=== PATIENT | female | born 2000 | race Caucasian/White ===

== ENCOUNTER 2021-10-08 14:44 | Outpatient (REF) | payer OTHER, SELFPAY ==
[2021-10-08 15:10] LABS: MANUAL DIFF FLAG NO
[2021-10-08 15:33] LABS: Basophils Absolute Auto 0.1 X10*3/uL (0.0-0.2); Basophils Percent Auto 0.7 % (0-2); Eosinophils Absolute Auto 0.1 X10*3/uL (0.0-0.4); Eosinophils Percent Auto 0.6 % (0-4); Hematocrit 39.4 % (37.0-47.0); Hemoglobin 13.1 g/dl (12.0-16.0); Imm Gran Abs Auto 0.05 X10*3/uL (0.00-0.03); Imm Gran Pct Auto 0.5 % (0.0-0.4); Lymphocytes Absolute Auto 2.4 X10*3/uL (1.2-4.9); Lymphocytes Percent Auto 22.8 % (20-40); Mean Corpuscular HGB Conc 33.2 g/dl (31.0-35.0); Mean Corpuscular Hemoglobin 27.5 pg (27.0-33.0); Mean Corpuscular Volume 82.8 fL (80.0-98.0); Mean Platelet Volume 10.2 fL (9.4-12.3); Monocytes Absolute Auto 0.5 X10*3/uL (0.1-1.2); NRBC Pct Auto 0.2 /100WBC (0.0-0.2); Neutrophils Absolute Auto 7.5 x10*3/uL (2.0-8.3); Neutrophils Percent Auto 70.4 % (45-73); Platelet Count 507 X10*3/uL (160-400); Red Blood Count 4.76 X10*6/uL (4.20-5.50); Red Cell Distribution Width 13.4 % (11.0-16.0); White Blood Count 10.6 X10*3/uL (4.8-10.8)
[2021-10-08 15:59] LABS: Anion Gap 13 (12-20); Blood Urea Nitrogen 10 mg/dL (9-16); Calcium 9.7 mg/dL (8.4-10.2); Carbon Dioxide 25 mmol/L (22-29); Chloride 105 mmol/L (96-108); Cholesterol 157 mg/dL; Estimated Glomerular Filt Rate > 60; Glucose Fasting 85 mg/dL (60-99); HDL Cholesterol 49 mg/dL; LDL Cholesterol Calculated 97 mg/dl; Potassium 4.6 mmol/L (3.3-5.1); Sodium 138 mmol/L (135-145); Triglycerides 55 mg/dL
[2021-10-08 16:19] LABS: TSH reflex Free T4 0.92 uIU/mL (0.32-4.0)
== END 2021-10-08 14:45 | disposition home or self-care (01) ==
LOC: HO.LAB 14:44
PROVIDERS: PCP Internal Medicine; Visit Provider Nurse Practitioner Family
DX: Z00.00 Encounter for general adult medical examination without abnormal findings (principal); Z13.220 Encounter for screening for lipoid disorders; Z13.29 Encounter for screening for other suspected endocrine disorder; I10 Essential (primary) hypertension; E78.00 Pure hypercholesterolemia, unspecified
CPT/HCPCS: 36415; 80048; 80061; 84443; 85025

== ENCOUNTER 2023-01-19 09:20 | Outpatient (REF) | payer OTHER, SELFPAY ==
[2023-01-20 00:48] LABS: CT PCR NOT DETECTED (Not Detect.); NG PCR NOT DETECTED (Not Detect.)
[2023-01-20 10:59] LABS: BV Int Neg Control Negative (Negative); BV Int Pos Control Positive (Positive)
== END 2023-01-19 09:21 | disposition home or self-care (01) ==
LOC: HO.LNP 09:20
PROVIDERS: PCP Internal Medicine; Visit Provider Advanced Practice Midwife
DX: Z01.419 Encounter for gynecological examination (general) (routine) without abnormal findings (principal); Z20.2 Contact with and (suspected) exposure to infections with a predominantly sexual mode of transmission
CPT/HCPCS: 0353U; 87480; 87510; 87660; 88142

== ENCOUNTER 2023-10-25 09:53 | Outpatient (AMB) | payer OTHER, SELFPAY ==
--- NOTE | 2023-10-25 09:57 | A.OFFPC_ITS ---
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 Accompanied by: Self / Same As Patient Allergies ibuprofen Allergy (Unknown, Verified 10/25/23 10:19) lips swollen Medication List - Last Reconciled 10/25/23 by Regine Alamo MD No Known Home Meds Tobacco use date assessed: 10/25/23 Dental Screening Dental Screen Date: 10/25/23 Did you have a dental visit in the last 12 months?: No Did you have a dental problem in the last 6 months where you did not have access to dental care?: No Was dental information given to patient?: Patient has dentist HPI HPI Comments History of Present Illness Details This is a 23-year-old female that comes for her physical exam. Last Pap smear was 2022. No chest pain or shortness of breath. Has elevated platelets before and CBC will be repeated. She complains of urge urinary incontinence and I recommend to do time bathroom visits. [facility] Surgical History No pertinent past surgical history Family History Mother No problems noted. Father Substance use disorder Social History Housing: Apartment Alcohol intake: current Alcohol intake frequency: a few times a week Alcohol type: wine and hard liquor Patient Tobacco Use Status: Never used Tobacco e-Cigarette/Vaping Use: Never Used Second Hand Smoke Exposure: No service: No Current occupational status: employed Current occupational exposures/hazards: No Cognitive needs: No Hearing needs: No Vision needs: Yes Female Reproductive History Menstrual Age of Menarche: 7 Questionnaire PHQ-9 Over the last 2 weeks, how often have you been bothered by any of the following problems? 1. Little interest or pleasure in doing things: not at all 2. Feeling down, depressed, or hopeless: not at all 3. Trouble falling or staying asleep, or sleeping too much: not at all 4. Feeling tired or having little energy: not at all 5. Poor appetite or overeating: not at all 6. Feeling bad about yourself - or that you are a failure or have let yourself or your family down: not at all 7. Trouble concentrating on things, such as reading the newspaper or watching television: not at all 8. Moving or speaking so slowly that other people could have noticed. Or the opposite - being so fidgety or restless that you have been moving around a lot more than usual: not at all 9. Thoughts that you would be better off or of hurting yourself in some way: not at all Total score: 0 Depression Screening Interpretation: Negative Depression Screening Done: Yes 11214 - PHQ-9 Billing: Yes Source: Developed by Drs. Saleem Judd, Priya Josue, Yannick Chin and colleagues, with an educational danica from [employer]. Thrive Questionnaire Date Thrive assessed: 10/13/22 I am a: Patient What is your living situation today?: I have a steady place to live Within the past 12 months, did the food you bought not last and you didn't have the money to get more?: Never true Within the past 12 months, did you worry whether your food would run out before you got money to buy more?: Never true Do you have trouble paying for medicines?: No Do you have trouble getting transportation to medical appointments?: No Do you have trouble paying your heating and electricity bill?: No Do you have trouble taking care of your child, family member or friend?: No Do you have trouble with day-to-day activities such as bathing, preparing meals, shopping, managing finances, etc.?: No Are you currently unemployed and looking for a job?: No Are you interested in more education?: No Please select the resources that you would like help with: None Currently or been in a relationship where the following occur: no concerns reported THRIVE Score: 0 AUDIT C Alcohol Use Questionnaire (AUDIT-C) 1. How often do you have a drink containing alcohol?: 2-3 times a week 2. How many drinks containing alcohol do you have on a typical day when you are drinking?: 1 or 2 3. How often do you have six or more drinks on one occasion?: Never Total Score: 3 Score Reviewed/Action Taken: No SLIM-7 AMB Questionnaire SLIM-7 Date SLIM - 7 assessed: 10/25/23 Feeling nervous, anxious, or on edge: 0 = Not at all Not being able to stop or control worryin = Not at all Worrying too much about different things: 0 = Not at all Trouble relaxin = Not at all Being so restless that it is hard to sit still: 0 = Not at all Becoming easily annoyed or irritable: 0 = Not at all Feeling afraid as if something awful might happen: 0 = Not at all Total SLIM-7 score (0-4 normal; 5-9 mild; 10-14 moderate; 15-21 severe): 0 Source: Developed by Drs. Saleem Judd, Priya Josue, Yannick Chin and colleagues, with an educational danica from [employer]. SLIM-7 Assessment Billing SLIM-7 Assessment Tool: SLIM-7 Assessment 89749 Review of Systems Const All systems reviewed & are unremarkable except as noted in HPI and below Eyes Reports no additional complaints, Denies change in vision and Denies other visual disturbances Card Denies chest pain at rest, Denies chest pain with activity, Denies edema, Denies irregular heart rhythm, Denies claudication, Denies dyspnea, Denies dyspnea on exertion, Denies orthopnea, Denies paroxysmal nocturnal dyspnea and Denies slow heart rate Resp Denies cough, Denies dyspnea and Denies dyspnea on exertion GI Denies abdominal pain, Denies change in bowel habits, Denies excessive flatus, Denies nausea and Denies vomiting Reports urinary incontinence, Denies urinary hesitancy and Denies urinary urgency Musc Denies abnormal gait, Denies atrophy, Denies deformity and Denies limited range of motion Neuro Denies abnormal gait, Denies behavioral changes, Denies confusion and Denies lack of coordination Psych Denies behavioral changes and Denies confusion Physical exam (Primary Care) Vital Signs: Last Vital Signs BP 104/78 10/25/23 09:59 BMI result Body Mass Index 29.9 Tobacco/Smoking Status: Tobacco use Status Tobacco use date assessed 10/25/23 10/25/23 10:04 Patient Tobacco Use Status Never used Tobacco 10/25/23 10:04 e-Cigarette/Vaping Use Never Used 10/25/23 10:04 PHQ-9: PHQ-9 Score PHQ-9: Total score 0 10/25/23 10:04 Depression Screening Interpretation: Negative Thrive Assessment: Date of Thrive Assessment Date Thrive assessed 10/13/22 10/25/23 10:04 Currently or been in a relationship where the following occur: no concerns reported Const General: No confusion Orientation/consciousness: patient oriented x3 and No confusion HENMT Head: Yes normal to inspection, Yes normocephalic and Yes atraumatic Ears: external ears normal Eyes General: appearance normal, both eyes and all related structures Eyelids: Yes eyelids normal Conjunctivae: conjunctivae normal Neck Neck: Yes normal visual inspection and Yes supple Resp Effort & Inspection: normal respiratory effort Auscultation: clear to auscultation bilaterally Cardio Jugular venous distension: no JVD Rate: regular rate Rhythm: regular rhythm Heart sounds: S1 normal heart sound present and S2 normal heart sound present GI Inspection: Yes normal to inspection Palpation (GI): Soft to palpation and nontender Auscultation: normal bowel sounds Skin General skin exam: no rashes or lesions noted Neuro General: patient oriented x3, no focal motor deficits and No confusion Extrem General: Yes full ROM Psych Appearance: grossly normal Assessment and Plan Assessment & Plan (1) Physical exam: Comment: Due for eye exam. Last dental exam 2 months ago with [facility]. Not COVID vaccinated, will think about this and flu. She f/u's with [facility], Dr. Reyes. Copper IUD placed in 2019. Code(s): Z00.00 - Encounter for general adult medical examination without abnormal findings Plan: Repeat in a year. Orders: Orders Complete Blood Count Auto Diff Today R79.89 - Other specified abnormal findings of blood chemistry Coding Level of Care Code Est Pt Prev Care 18-39y(52341) Diagnoses Physical exam Z00.00 Additional Codes SLIM-7 Assessment Billing - SLIM-7 Assessment Tool: SLIM-7 Assessment 95740 ([id number]) Time Spent (min) 32
[2023-10-25 09:59] VITALS: BP 104/78; BMI 29.9
== END 2023-10-25 10:30 | disposition home or self-care (01) ==
PROVIDERS: Visit Provider Internal Medicine
DX: Z00.00 Encounter for general adult medical examination without abnormal findings (principal)
CPT/HCPCS: 99395

== ENCOUNTER 2023-10-25 10:37 | Outpatient (REF) | payer OTHER, SELFPAY ==
[2023-10-25 10:53] LABS: MANUAL DIFF FLAG NO
[2023-10-25 11:46] LABS: Basophils Absolute Auto 0.1 X10*3/uL (0.0-0.2); Basophils Percent Auto 1.4 % (0-2); Eosinophils Absolute Auto 0.1 X10*3/uL (0.0-0.4); Eosinophils Percent Auto 1.1 % (0-4); Hematocrit 41.5 % (37.0-47.0); Hemoglobin 14.1 g/dl (12.0-16.0); Imm Gran Abs Auto 0.05 X10*3/uL (0.00-0.03); Imm Gran Pct Auto 0.6 % (0.0-0.4); Lymphocytes Absolute Auto 2.9 X10*3/uL (1.2-4.9); Lymphocytes Percent Auto 35.8 % (20-40); Mean Corpuscular Hemoglobin 28.3 pg (27.0-33.0); Mean Corpuscular Volume 83.2 fL (80.0-98.0); Mean Platelet Volume 9.9 fL (9.4-12.3); Monocytes Absolute Auto 0.6 X10*3/uL (0.1-1.2); Monocytes Percent Auto 7.1 % (2-11); Neutrophils Absolute Auto 4.3 x10*3/uL (2.0-8.3); Platelet Count 405 X10*3/uL (160-400); Red Blood Count 4.99 X10*6/uL (4.20-5.50); Red Cell Distribution Width 13.9 % (11.0-16.0)
== END 2023-10-25 10:38 | disposition home or self-care (01) ==
LOC: HO.LAB 10:37
PROVIDERS: PCP Internal Medicine; Visit Provider Internal Medicine
DX: R79.89 Other specified abnormal findings of blood chemistry (principal)
CPT/HCPCS: 36415; 85025

== ENCOUNTER 2024-01-23 10:49 | Outpatient (AMB) | payer OTHER, SELFPAY ==
[2024-01-23 10:52] VITALS: BP 102/70; BMI 33.5
--- NOTE | 2024-01-23 10:52 | MHC.OFFVIS ---
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 She gets regular periods with it she does not exactly keep track to the day but they come regularly and monthly. She has no health concerns who worries about any STDs in particular. She can not feel the strings. On questioning she says she does have a kind of a a white to off-white discharge but no itching, burning, smell or anything. 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 She says she has never been really active person. She has not interested in childbearing soon [facility] Surgical History No pertinent past surgical history Family History Mother No problems noted. Father Substance use disorder Social History (Updated 01/23/24 @ 10:55 by BRIANNA Sandy) Housing: Apartment Alcohol intake: current Alcohol intake frequency: a few times a week Alcohol type: wine and hard liquor Patient Tobacco Use Status: Never used Tobacco e-Cigarette/Vaping Use: Never Used Second Hand Smoke Exposure: No Substance Use Type: Marijuana service: No Current occupational status: employed Current occupational exposures/hazards: No Cognitive needs: No Hearing needs: No Vision needs: Yes Female Reproductive History Menstrual Age of Menarche: 7 Duration of menses: 6-7 days control method: copper IUCD Total pregnancies: 0 Date of last pap smear: 01/20/23 (negative) History of abnormal pap smear: No Physical Exam Vital Signs: Last Vital Signs BP 102/70 01/23/24 10:52 BMI result Body Mass Index 33.5 Const General: healthy appearing, comfortable, no acute distress, well developed and alert Nutritional Appearance: average body habitus Orientation/consciousness: patient oriented x3 Limitations: no limitations HEENT Head: Yes normocephalic Neck Neck: Yes normal visual inspection Chest Chest palpation & inspection: normal inspection of the chest Breast/axilla inspection: normal inspection of the breasts and normal inspection of the axillae Breast/axilla palpation: normal palpation of the breasts and normal palpation of the axillae Resp Effort & Inspection: normal respiratory effort GI Inspection: Yes normal to inspection, No Abdominal wall edema and No distended Palpation (GI): Soft to palpation and nontender Other: External exam within normal limits vagina pink and moist there has a whitish discharge consistent with luteal phase. Cervix nulliparous pink smooth is was ParaGard IUD strings visible uterus small midposition nontender. Adnexa nontender good tone with Kegel. General: Yes bladder normal to palpation External Female Exam: normal external appearance and normal appearance of the urethra Speculum Exam - Vagina: normal appearance of the vagina, normal palpation and normal vaginal discharge Speculum Exam - Cervix: normal appearance of the cervix, normal palpation and nontender Bimanual exam- vagina & uterus: normal bimanual exam, normal palpation, uterine size normal, bladder normal to palpation, consistency normal, normal palpation, uterine mobility normal, uterine shape normal, No Cervical tenderness present, non-tender and no cervical motion tenderness Bimanual Exam- Adnexa, other: normal adnexae, no masses, normal and No adnexal tenderness Neuro General: patient oriented x3 Assessment & Plan Assessment & Plan (1) Uses intrauterine device as primary control method: Comment: Overall. she is content with the ParaGard IUD which she has had for 4 years Code(s): Z97.5 - Presence of (intrauterine) contraceptive device Category: Social Hx (2) Screen for sexually transmitted diseases: Code(s): Z11.3 - Encounter for screening for infections with a predominantly sexual mode of transmission Category: Medical (3) Cervical cancer screening: Comment: Negative Pap 2018; Pap repeated 01/20/2020= negative. Code(s): Z12.4 - Encounter for screening for malignant neoplasm of cervix Category: Medical (4) Well woman exam with routine gynecological exam: Code(s): Z01.419 - Encounter for gynecological examination (general) (routine) without abnormal findings Category: Medical Plan -----Discussed in this visit the following: healthy balanced diet, regular and consistent exercise, getting recommended health screens, doing the best she can for her particular health concerns, kegel exercises, pap smear screening and followup recommendations, mammography screening and SBE, normal changes in cycles in her life stage--- . Reviewed her content with the IUD reviewed that sometimes it is helpful thing to be more aware of ones. So that if she ever missed it she could track the dates exactly. Also being where this is a helpful to terms of future fertility and planning she has no plans for childbirth in times in the discussed trying to be in his good health as possible for embarking on that journey. Orders: Orders Bacterial Vaginosis Panel Today Z11.3 - Encounter for screening for infections with a predominantly sexual mode of transmission CT NG by PCR Today Z11.3 - Encounter for screening for infections with a predominantly sexual mode of transmission Coding Level of Care Code Est Pt Prev Care 18-39y(22995) Diagnoses Uses intrauterine device as primary control method Z97.5 Screen for sexually transmitted diseases Z11.3 Cervical cancer screening Z12.4 Well woman exam with routine gynecological exam Z01.419
== END 2024-01-23 11:27 | disposition home or self-care (01) ==
PROVIDERS: Visit Provider Advanced Practice Midwife
DX: Z01.419 Encounter for gynecological examination (general) (routine) without abnormal findings (principal)
CPT/HCPCS: 99395

== ENCOUNTER 2024-01-23 10:49 | Outpatient (REF) | payer OTHER, SELFPAY ==
[2024-01-24 09:09] LABS: Bacterial Vaginosis PCR POSITIVE (Negative); Candida Group PCR NOT DETECTED (Not Detect); Candida glab krusei PCR NOT DETECTED (Not Detect); Trichomonas vaginalis PCR NOT DETECTED (Not Detect)
[2024-01-24 10:29] LABS: CT PCR NOT DETECTED (Not Detect.); NG PCR NOT DETECTED (Not Detect.)
== END 2024-01-23 10:50 | disposition home or self-care (01) ==
LOC: HO.LNP 10:49
PROVIDERS: Visit Provider Advanced Practice Midwife
DX: Z01.419 Encounter for gynecological examination (general) (routine) without abnormal findings (principal); Z11.3 Encounter for screening for infections with a predominantly sexual mode of transmission; Z97.5 Presence of (intrauterine) contraceptive device
CPT/HCPCS: 0352U; 0353U; 99395

== ENCOUNTER 2024-07-23 14:24 | Outpatient (AMB) | payer OTHER, SELFPAY ==
--- NOTE | 2024-07-23 14:28 | MHC.OFFVIS ---
Vital Signs 07/23/24 14:33 Height 5 ft 4 in Weight 176 lb BMI 30.2 BP 110/68 Intake Visit Reasons: IUD removal Consult Desktop Publisher Required: No Information Interpreted: clinical only Signal Manager: Signal Manager Present Allergies ibuprofen Allergy (Unknown, Verified 07/23/24 14:33) lips swollen Medication List - Last Reconciled 07/23/24 by Paulina Rodriguez CNM copper (ParaGard T 380A) intrauterine Is last menstrual period known: Yes Last menstrual period: 07/12/24 HPI HPI IUD removal Consult: Details: Patient is here could she wants to talk about the IUD taken she broke up her boyfriend of 6 years and she has made a lot of changes in life and she is not sexually active with anybody and does not to be but if she did she would use condoms. And she would use plan B as a backup method if a condom broke or slipped off. She wants it out because she a does not need it anymore and be feels like she is had lots of episodes of bacterial vaginosis bad odor all the time she has that odor now would like it checked and also checked for STDs and she would like treatment for if she could have it she took the Flagyl in the past but it was pills her hard to swallow tasted also so she would be interested gel if it is possible to remove her IUD today she would be very happy with that she has not had sex in about 2 months. Her last menstrual period was at the beginning of the month. [facility] Surgical History No pertinent past surgical history Family History Mother No problems noted. Father Substance use disorder Social History Housing: Apartment Alcohol intake: current Alcohol intake frequency: a few times a week Alcohol type: wine and hard liquor Patient Tobacco Use Status: Never used Tobacco e-Cigarette/Vaping Use: Never Used Second Hand Smoke Exposure: No Substance Use Type: Marijuana service: No Current occupational status: employed Current occupational exposures/hazards: No Cognitive needs: No Hearing needs: No Vision needs: Yes Female Reproductive History Menstrual Age of Menarche: 7 Duration of menses: 3-5 days Date of last menstrual period: 07/12/24 control method: copper IUCD Total pregnancies: 0 Date of last pap smear: 01/20/23 (neg) History of abnormal pap smear: No Physical Exam Vital Signs: Last Vital Signs BP 110/68 07/23/24 14:33 BMI result Body Mass Index 30.2 Other: Nulliparous cervix with ParaGard IUD string visible. See procedures for the description discharge appeared within normal limits somewhat mucousy with a beige color. Testing done for STIs and IUD at her request. External Female Exam: normal external appearance and normal appearance of the urethra Speculum Exam - Vagina: normal appearance of the vagina and normal vaginal discharge Speculum Exam - Cervix: normal appearance of the cervix and Cervical os closed Office Procedures IUD Insert/Removal Details Details: ---Patient is here for her IUD removal. Patient was very clear that she would like it removed she is not sexually active with anyone in would use condoms if she did become so. She thinks that her recurrent BV is partly because the IUDs there so but she also wants to be checked for STIs which was done. Additionally she would love it if it could be removed she is not with anyone now after break-up of a 6 year relationship and has gone on to make other changes in her life with a new job a new look is change in things up. During the exam cultures were done to check for infection The patient confirmed she wanted it removed and she signed consent these strings of the ParaGard IUD were grasped forceps patient gave 1 cough and it was while the patient coughed the patient had a little spotting a blood afterwards tolerated very well and feels very good that it has been removed. I am also going to treat her for BV B as she feels that is what she has and would she would like the gel. She is on the portal and can check her results. see her for her annual in January-IUD Removal Procedure code (CPT) selection complete Results AMB Test Urine AMB Test Urine Negative Last Edit by George Nicole CMA on 07/23/24 15:26 Results Reviewed Results Reviewed: Name: Nisa Vega I Age/Sex: 22/F Attending: Paulina Rodriguez CNM : 2000 Submitted by: Paulina Rodriguez CNM Copies to: Regine Guillermo MD MR #: [id number] Status: DEP REF Collected: 01/19/23 Location: [facility] Received: 01/20/23 Interpretation Satisfactory for evaluation. Negative for intraepithelial lesion or malignancy. Clinical Information LMP: Unknown date Previous PAP test: 04/2019, WNL Material Received ThinPrep-Cervical Copies To Paulina Rodriguez CNM [address] [place] [address] [address] [place] [address] Regine Guillermo MD [address] [place] [address] [address] [place] [address] Electronically Signed By: SCOTT Bauman (ASC) 02/01/23 1230 The Pap Test is a screening procedure with the inherent possibility of both false negative and false positive results. Results should be interpreted in the context of historic and current clinical findings. Reliability of the Pap Test is enhanced by performing the test on a regular repetitive basis. Patient: Nisa Vega I Age/Sex: 22/F MR#: [id number] Page 1 of 1 Assessment & Plan Assessment & Plan (1) Cervical cancer screening: Comment: Negative Pap 2018; Pap repeated 01/20/2020= negative. Code(s): Z12.4 - Encounter for screening for malignant neoplasm of cervix Category: Medical (2) Screen for sexually transmitted diseases: Code(s): Z11.3 - Encounter for screening for infections with a predominantly sexual mode of transmission Category: Medical (3) control counseling: Code(s): Z30.09 - Encounter for other general counseling and advice on contraception Category: Medical (4) Vaginal odor: Code(s): N89.8 - Other specified noninflammatory disorders of vagina Category: Medical (5) Encounter for IUD removal: Code(s): Z30.432 - Encounter for removal of intrauterine contraceptive device Category: Medical (6) Uses intrauterine device as primary control method: Comment: Overall. she is content with the ParaGard IUD which she has had for 4 years. IUD removed at her request 07/23/2024 see note. Plans abstinence and or condom use. Code(s): Z97.5 - Presence of (intrauterine) contraceptive device Category: Social Hx Plan Discussed patient's certainty that she wanted the ParaGard removed she is not within now and if she became sexually active she would use condoms. She would use plan B is a backup if it were necessary. She gets regular periods she thinks the ParaGard maybe responsible for some recurrences of bacterial vaginosis symptoms with odor the bothers her. Testing done for STIs and testing ordered for STIs lab work that she can go get done downstairs today. She is on the portal and get the results herself. In addition I did note that she was wearing a panty liner as well as nylon type underwear and I cautioned against use of those as they definitely contribute to a perception of an abnormal odor to the discharge. Patient was very happy to have the STI testing and also the IUD removed I applied positive changes she is making. Orders: Orders AMB IUD Insertion/Removal - Patient Supply Today N89.8 - Other specified noninflammatory disorders of vagina, Z11.3 - Encounter for screening for infections with a predominantly sexual mode of transmission, Z12.4 - Encounter for screening for malignant neoplasm of cervix, Z30.09 - Encounter for other general counseling and advice on contraception, Z30.432 - Encounter for removal of intrauterine contraceptive device Hepatitis B Surface Antigen Today Z11.3 - Encounter for screening for infections with a predominantly sexual mode of transmission, Z12.4 - Encounter for screening for malignant neoplasm of cervix, Z30.09 - Encounter for other general counseling and advice on contraception Hepatitis C Antibody Today Z11.3 - Encounter for screening for infections with a predominantly sexual mode of transmission, Z12.4 - Encounter for screening for malignant neoplasm of cervix, Z30.09 - Encounter for other general counseling and advice on contraception HIV Ab/Ag Today Z11.3 - Encounter for screening for infections with a predominantly sexual mode of transmission, Z12.4 - Encounter for screening for malignant neoplasm of cervix, Z30.09 - Encounter for other general counseling and advice on contraception Syphilis Screen Today Z11.3 - Encounter for screening for infections with a predominantly sexual mode of transmission, Z12.4 - Encounter for screening for malignant neoplasm of cervix, Z30.09 - Encounter for other general counseling and advice on contraception Bacterial Vaginosis Panel Today N89.8 - Other specified noninflammatory disorders of vagina AMB HCG Urine Test Today Z32.02 - Encounter for test, result negative CT NG by PCR Today N89.8 - Other specified noninflammatory disorders of vagina, Z20.2 - Contact with and (suspected) exposure to infections with a predominantly sexual mode of transmission Medications: New metronidazole 0.75%(37.5mg/5gram) 1 appful vaginal BID 5 days 70 grams 2RF Coding Level of Care Code Est Pt Level 3 (64341) Diagnoses Cervical cancer screening Z12.4 Screen for sexually transmitted diseases Z11.3 control counseling Z30.09 Vaginal odor N89.8 Encounter for IUD removal Z30.432 Uses intrauterine device as primary control method Z97.5 CPT Codes Details - CPT: 91173-TFM Removal ([id number])
[2024-07-23 14:33] VITALS: BP 110/68; BMI 30.2
== END 2024-07-23 15:27 | disposition home or self-care (01) ==
PROVIDERS: PCP Internal Medicine; Visit Provider Advanced Practice Midwife
DX: N89.8 Other specified noninflammatory disorders of vagina (principal); Z30.09 Encounter for other general counseling and advice on contraception; Z30.432 Encounter for removal of intrauterine contraceptive device; Z32.02 Encounter for pregnancy test, result negative
CPT/HCPCS: 58301; 99213

== ENCOUNTER 2024-07-23 14:24 | Outpatient (REF) | payer OTHER, SELFPAY ==
[2024-07-24 06:48] LABS: CT PCR NOT DETECTED (Not Detect.); NG PCR NOT DETECTED (Not Detect.)
[2024-07-24 13:36] LABS: Bacterial Vaginosis PCR POSITIVE (Negative); Candida Group PCR NOT DETECTED (Not Detect); Candida glab krusei PCR NOT DETECTED (Not Detect); Trichomonas vaginalis PCR NOT DETECTED (Not Detect)
== END 2024-07-23 14:25 | disposition home or self-care (01) ==
LOC: HO.LAB 14:24
PROVIDERS: PCP Internal Medicine; Visit Provider Advanced Practice Midwife
DX: Z30.432 Encounter for removal of intrauterine contraceptive device (principal); Z11.3 Encounter for screening for infections with a predominantly sexual mode of transmission; N89.8 Other specified noninflammatory disorders of vagina
CPT/HCPCS: 0352U; 36415; 58301; 81025; 86803; 87389; 87491; 87591; 99212

== ENCOUNTER 2024-07-23 15:25 | Outpatient (REF) | payer OTHER, SELFPAY ==
[2024-07-24 04:09] LABS: HBsAGNum1 0.38 S/CO (0.00-0.99); HIV AB/AG Nonreactive (Nonreactive); HIV Num 1 0.06 S/CO (0.00-0.99); Hepatitis B Surface Antigen Negative (Negative); ~HepC Num1 0.08 S/CO (0.00-0.79); ~Hepatitis C Antibody Nonreactive (Nonreactive)
[2024-07-27 07:48] LABS: Syphilis Screen Nonreactive (Nonreactive)
== END 2024-07-23 15:26 | disposition home or self-care (01) ==
LOC: HO.HHCL 15:25
PROVIDERS: Visit Provider Advanced Practice Midwife
DX: Z11.4 Encounter for screening for human immunodeficiency virus [HIV] (principal); Z11.3 Encounter for screening for infections with a predominantly sexual mode of transmission; N89.8 Other specified noninflammatory disorders of vagina
CPT/HCPCS: 36415; 86780; 86803; 87340; 87389

== ENCOUNTER 2024-10-30 09:39 | Outpatient (AMB) | payer OTHER, SELFPAY ==
[2024-10-30 09:42] VITALS: BP 108/70
--- NOTE | 2024-10-30 09:42 | MHC.PC.OV ---
Vital Signs 10/30/24 09:42 Height 5 ft 4 in Weight 175 lb BMI 30.0 BP 108/70 Blood Pressure Location Lt brachial Position Sitting Intake Visit Reasons: Annual Exam Intake Note: Patient here for an annual physical exam [employer] Required: No Accompanied by: Self / Same As Patient Allergies ibuprofen Allergy (Unknown, Verified 10/30/24 09:59) lips swollen Medication List - Last Reconciled 10/30/24 by Regine Alamo MD metronidazole 0.75%(37.5mg/5gram) 1 appful vaginal BID 5 days Tobacco use date assessed: 10/30/24 Dental Screening Dental Screen Date: 10/30/24 Did you have a dental visit in the last 12 months?: No Did you have a dental problem in the last 6 months where you did not have access to dental care?: No Was dental information given to patient?: Patient has dentist HPI HPI Comments History of Present Illness Details This is a 24-year-old female that comes for her physical exam. Pap smear done 2022 was normal. Denies any chest pain or shortness on breath. Complains of right ear discomfort and will be referred to ENT. Vaccines up-to-date. [facility], [facility] Surgical History No pertinent past surgical history Family History Mother No problems noted. Father Substance use disorder Social History Housing: Apartment Alcohol intake: current Alcohol intake frequency: a few times a week Alcohol type: wine and hard liquor Patient Tobacco Use Status: Never used Tobacco e-Cigarette/Vaping Use: Never Used Second Hand Smoke Exposure: No Substance Use Type: Marijuana service: No Current occupational status: employed Current occupational exposures/hazards: No Cognitive needs: No Hearing needs: No Vision needs: Yes Female Reproductive History Menstrual Age of Menarche: 7 Questionnaire PHQ-9 Over the last 2 weeks, how often have you been bothered by any of the following problems? 1. Little interest or pleasure in doing things: several days 2. Feeling down, depressed, or hopeless: not at all 3. Trouble falling or staying asleep, or sleeping too much: several days 4. Feeling tired or having little energy: not at all 5. Poor appetite or overeating: not at all 6. Feeling bad about yourself - or that you are a failure or have let yourself or your family down: not at all 7. Trouble concentrating on things, such as reading the newspaper or watching television: not at all 8. Moving or speaking so slowly that other people could have noticed. Or the opposite - being so fidgety or restless that you have been moving around a lot more than usual: not at all 9. Thoughts that you would be better off or of hurting yourself in some way: not at all Total score: 2 Depression Screening Interpretation: Positive Depression Screening Follow-up: Existing condition and Follow-up Visit Requested Depression Screening Done: Yes 30605 - PHQ-9 Billing: Yes Source: Developed by Drs. Saleem Judd, Priya Josue, Yannick Chin and colleagues, with an educational danica from [employer]. Thrive Questionnaire Date Thrive assessed: 10/30/24 I am a: Patient What is your living situation today?: I have a steady place to live Within the past 12 months, did the food you bought not last and you didn't have the money to get more?: Never true Within the past 12 months, did you worry whether your food would run out before you got money to buy more?: Never true Do you have trouble paying for medicines?: No Do you have trouble getting transportation to medical appointments?: No Do you have trouble paying your heating and electricity bill?: No Do you have trouble taking care of your child, family member or friend?: No Do you have trouble with day-to-day activities such as bathing, preparing meals, shopping, managing finances, etc.?: No Are you currently unemployed and looking for a job?: No Are you interested in more education?: No Please select the resources that you would like help with: None Currently or been in a relationship where the following occur: No concerns reported THRIVE Score: 0 AUDIT C Alcohol Use Questionnaire (AUDIT-C) 1. How often do you have a drink containing alcohol?: Monthly or less 2. How many drinks containing alcohol do you have on a typical day when you are drinking?: 1 or 2 3. How often do you have six or more drinks on one occasion?: Less than monthly Total Score: 2 Score Reviewed/Action Taken: No SLIM-7 AMB Questionnaire SLIM-7 Date SLIM - 7 assessed: 10/30/24 Feeling nervous, anxious, or on edge: 1 = Several days Not being able to stop or control worryin = Several days Worrying too much about different things: 1 = Several days Trouble relaxin = Several days Being so restless that it is hard to sit still: 0 = Not at all Becoming easily annoyed or irritable: 1 = Several days Feeling afraid as if something awful might happen: 1 = Several days Total SLIM-7 score (0-4 normal; 5-9 mild; 10-14 moderate; 15-21 severe): 6 Source: Developed by Drs. Saleem Judd, Priya Josue, Yannick Chin and colleagues, with an educational danica from [employer]. SLIM-7 Assessment Billing SLIM-7 Assessment Tool: SLIM-7 Assessment 08810 Review of Systems Const All systems reviewed & are unremarkable except as noted in HPI and below Card Denies chest pain at rest, Denies chest pain with activity, Denies edema, Denies irregular heart rhythm, Denies claudication, Denies dyspnea, Denies dyspnea on exertion, Denies orthopnea, Denies paroxysmal nocturnal dyspnea and Denies slow heart rate Resp Denies cough, Denies dyspnea and Denies dyspnea on exertion GI Denies abdominal pain, Denies change in bowel habits, Denies excessive flatus, Denies nausea and Denies vomiting Reports urinary incontinence, Denies urinary hesitancy and Denies urinary urgency Musc Denies abnormal gait, Denies atrophy, Denies deformity and Denies limited range of motion Skin/Breast Denies bleeding lesions, Denies changing lesions and Denies rash Neuro Denies abnormal gait, Denies behavioral changes and Denies lack of coordination Psych Denies behavioral changes and Reports depression Physical exam (Primary Care) Vital Signs: Last Vital Signs BP 108/70 10/30/24 09:42 BMI result Body Mass Index 30.0 BMI Assessment/Plan discussion: High BMI High, discussed plan: lifestyle, weight reduction, dietary and physical activity Tobacco/Smoking Status: Tobacco use Status Tobacco use date assessed 10/30/24 10/30/24 09:45 Patient Tobacco Use Status Never used Tobacco 10/30/24 09:45 e-Cigarette/Vaping Use Never Used 10/30/24 09:45 PHQ-9: PHQ-9 Score PHQ-9: Total score 2 10/30/24 12:30 Depression Screening Interpretation: Positive Depression Screening Follow-up: Existing condition and Follow-up Visit Requested Thrive Assessment: Date of Thrive Assessment Date Thrive assessed 10/30/24 10/30/24 09:45 Currently or been in a relationship where the following occur: No concerns reported [facility] Head: Yes normal to inspection, Yes normocephalic and Yes atraumatic Ears: external ears normal Eyes General: appearance normal, both eyes and all related structures Eyelids: Yes eyelids normal Conjunctivae: conjunctivae normal Neck Neck: Yes normal visual inspection and Yes supple Resp Effort & Inspection: normal respiratory effort Auscultation: clear to auscultation bilaterally Cardio Jugular venous distension: no JVD Rate: regular rate Rhythm: regular rhythm Heart sounds: S1 normal heart sound present and S2 normal heart sound present GI Inspection: Yes normal to inspection Palpation (GI): Soft to palpation and nontender Auscultation: normal bowel sounds Skin General skin exam: no rashes or lesions noted Neuro General: no focal motor deficits Extrem General: Yes full ROM Psych Appearance: grossly normal Office Procedures Flu Questionnaire Does the patient have a severe egg allergy?: No Does the patient have severe life threatening allergies?: No Does the patient have a fever or illness today?: No Has the patient ever had Guillain-Benavides Syndrome?: No Has the patient ever had any past reaction to a flu shot?: No Immunizations Fluarix Triv [id number] (PF) 45 mcg (15 mcg x 3)/0.5 mL IM syringe Performing Provider: Regine Alamo MD [facility] Administered by: BRIANNA Richards on 10/30/24 10:12 Dose Route Admin Location Dispensed Lot Number Expiration Date [facility] [employer] Manager 0.5 mL IM Left Deltoid 0.5 mL [id number] 03/04/25 03520-083-41 [employer] VIS Given Date VIS Provided VIS Publication Date 10/30/24 Single Vaccine 21 Eligibility Eligibility Date Funding Source Not [facility] Eligible 10/30/24 Private Coding Level of Care Code Est Pt Level 3 (08264) Est Pt Prev Care 18-39y(43955) Diagnoses Physical exam Z00.00 Discomfort of right ear H92.01 Additional Codes SLIM-7 Assessment Billing - SLIM-7 Assessment Tool: SLIM-7 Assessment 20691 ([id number]) PHQ-9 - 06697 - PHQ-9 Billing: Yes ([id number]) Time Spent (min) 31 Assessment & Plan Assessment & Plan (1) Physical exam: Comment: Due for eye exam. Last dental exam 2 months ago with Sarah Pressley. Not COVID vaccinated, will think about this and flu. She f/u's with [employer], Dr. Reyes. Copper IUD placed in 2019. Code(s): Z00.00 - Encounter for general adult medical examination without abnormal findings Category: Medical (2) Discomfort of right ear: Code(s): H92.01 - Otalgia, right ear Category: Medical Plan Repeat physical exam in a year. Referred to ENT for right ear discomfort. Orders: Orders Lipid Panel Today Z00.00 - Encounter for general adult medical examination without abnormal findings Influenza [id number] Immunization Today Z23 - Encounter for immunization Comprehensive [place]. Panel Fast Today Z00.00 - Encounter for general adult medical examination without abnormal findings Referrals Ear/Nose/Throat Referral H92.01 - Otalgia, right ear Medications: Refilled metronidazole 0.75%(37.5mg/5gram) 1 appful vaginal BID 5 days 70 grams 2RF
== END 2024-10-30 10:15 | disposition home or self-care (01) ==
PROVIDERS: PCP Internal Medicine; Visit Provider Internal Medicine
DX: Z00.00 Encounter for general adult medical examination without abnormal findings (principal); H92.01 Otalgia, right ear; Z23 Encounter for immunization

== ENCOUNTER → 2024-10-30 09:39 | Outpatient (BNVA) | payer OTHER, SELFPAY | PROVIDERS: PCP Internal Medicine; Visit Provider Internal Medicine | DX: Z00.01 Encounter for general adult medical examination with abnormal findings (principal); Z23 Encounter for immunization; H92.01 Otalgia, right ear | CPT/HCPCS: 90471; 90656; 96127; 99212; 99395 ==